=== PATIENT | male | born 2000 | race Caucasian/White ===

== ENCOUNTER 2024-07-18 08:39 | Emergency (ER) | payer MEDICAID, OTHER ==
[~2024-07-18] VITALS: Ht 182.9 cm; Wt 66.0 kg
[2024-07-18 09:04] VITALS: BP 127/78; TEMP 98.9
[2024-07-18 09:07] VITALS: PULSE 104; RESP 16; O2SAT 98
[2024-07-18 10:08] LABS: Basophils # (auto) 0 10 ^3/uL (0-0.2); Basophils % (auto) 0.2 % (0.0-2.0); Eosinophils # (auto) 0 10 ^3/uL (0-0.8); Eosinophils % (auto) 0.1 % (0.0-7.0); Hematocrit 48.2 % (41.0-53.0); Hemoglobin 16.2 g/dL (13.5-17.5); Lymphocytes # (auto) 0.9 10 ^3/uL (0.4-5.4); Lymphocytes % (auto) 4.4 % (10.0-50.0); Mean Corpuscular Hemoglobin 33.1 pg (28.0-32.0); Mean Corpuscular Hgb Conc. 33.6 g/dL (32.0-36.0); Mean Corpuscular Volume 98.3 fL (80.0-100.0); Monocytes % (auto) 4.9 % (0.0-12.0); Neutrophils # (auto) 17.9 10 ^3/uL (1.6-8.6); Neutrophils % (auto) 90.4 % (37.0-80.0); Platelet Count (auto) 208 10^3/uL (140-450); Red Cell Distribution Width 13.8 % (11.8-14.3); White Blood Cell 19.8 10^3/uL (4.4-10.8)
[2024-07-18 10:16] LABS: Alanine Aminotransferase 13 U/L (7-40); Alkaline Phosphatase 57 U/L (46-116); Anion Gap 9 (5-15); Aspartate Aminotransferase 17 U/L (13-40); BUN/Creatinine Ratio 12.9 (10.0-20.0); Blood Alcohol 3.8 mg/dL (<10); Blood Urea Nitrogen 12 mg/dL (9-23); Carbon Dioxide 25 mmol/L (20-31); Chloride 102 mmol/L (98-107); Glucose 93 mg/dL (74-106); Potassium 3.6 mmol/L (3.5-5.1); Sodium 136 mmol/L (136-145)
[2024-07-18 10:21] LABS: Albumin 5.5 g/dL (3.2-4.8); Calcium 10.4 mg/dL (8.7-10.4); Total Protein 8.4 g/dL (5.7-8.2)
[2024-07-18 10:27] LABS: Bilirubin, Total 1.6 mg/dL (0.2-1.0)
[2024-07-18 11:21] LABS: Urine Bacteria None Seen /hpf (None Seen)
--- NOTE | 2024-07-18 11:38 | ED.PDOC ---
Psychiatric HPI Comments 23-year-old male with PMHx Bipolar Disorder, Borderline Personality Disorder, PTSD, Anxiety, Depression presents with a chief complaint of hopelessness x onset 2 weeks. Patient states that he is not currently suicidal or homicidal at this time, but does endorse feeling "mentally unstable" and has not had his medications in 2 weeks. Patient reports that he normally takes Abilify and Ativan and has not taken them in 2 weeks. Patient also reports body aches and headache. No other symptoms or modifying factors present at this time. Chief Complaint: Suicidal Time Seen by MD: 11:15 Primary Care Provider: NONE Reviewed Notes: Medications, Allergies Information Source: Patient Mode of Arrival: Ambulatory Severity: Able to Care for Self, Able to Control Self Severity of Pain: Moderate Severity of Mental Status: Moderate Severity of Symptoms: Moderate Timing: Days Duration: Since onset Prehospital treatment: None Presents with: Other (HOPELESSNESS) Quality: Hopelessness Past Medical History PAST MEDICAL HISTORY: Anxiety, Depression Past Medical History (Other): Bipolar Disorder, Borderline Personality Disorder, PTSD Surgical History (Other): Left Wrist Repair Family History Family History: Reviewed,noncontributory to illness Social History Smoker: Cigarettes Alcohol: Sober Drugs: Denies Drug Use Lives In: Home Constitutional: denies: chills, diaphoresis, fatigue, fever, malaise, sweats, weakness, others EENTM: denies: blurred vision, double vision, ear bleeding, ear discharge, ear drainage, ear pain, ear ringing, eye pain, eye redness, hearing loss, mouth pain, mouth swelling, nasal discharge, nose bleeding, nose congestion, nose pain, photophobia, tearing, throat pain, throat swelling, voice changes, others Respiratory: denies: cough, hemoptysis, orthopnea, SOB at rest, shortness of breath, SOB with excertion, stridor, wheezing, others Cardiovascular: denies: chest pain, dizzy spells, diaphoresis, Dyspnea on exertion, edema, irregular heart beat, left arm pain, lightheadedness, palpitations, PND, syncope, others Gastrointestinal: denies: abdomen distended, abdominal pain, blood streaked bowels, constipated, diarrhea, dysphagia, difficulty swallowing, hematemesis, melena, nausea, poor appetite, poor fluid intake, rectal bleeding, rectal pain, vomiting, others Genitourinary: denies: burning, dysuria, flank pain, frequency, hematuria, incontinence, penile discharge, penile sore, pain, testicle pain, testicle swelling, urgency, others Neurological: denies: dizziness, fainting, headache, left sided numbness, left sided weakness, numbness, paresthesia, pre-existing deficit, right sided numbness, right sided weakness, seizure, speech problems, tingling, tremors, we akness, others Musculoskeletal: denies: back pain, gout, joint pain, joint swelling, muscle pain, muscle stiffness, neck pain, others Integumetry: denies: bruises, change in color, change in hair/nails, dryness, laceration, lesions, lumps, rash, wounds, others Allergic/Immunocompromised: denies: Difficulty Healing, Frequent Infections, Hives, Itching, others Hematologic/Lymphatic: denies: anemia, blood clots, easy bleeding, easy bruising, swollen glands, others Endocrine: denies: excessive hunger, excessive sweating, excessive thirst, excessive urination, flushing, intolerance to cold, intolerance to heat, unexplained weight gain, unexplained weight loss, others Psychiatric: reports: depression, hopeless; denies: anxiety, bipolar disorder, panic disorder, schizophrenia, sleepless, suicidal, others All Other Systems: Reviewed and Negative Physical Exam General Appearance: No Apparent Distress HEENT: Other (Unremarkable) Neck: Full Range of Motion, Normal Inspection Respiratory: Lungs Clear, No Accessory Muscle Use, No Respiratory Distress, Normal Breath Sounds Cardiovascular: No Edema, No JVD, Regular Rate/Rhythm Breast Exam: Deferred Gastrointestinal: Non Tender, Soft Genitalia: Deferred Pelvic: Deferred Rectal: Deferred Extremities: Normal inspection, Normal range of motion, Non-tender, No pedal edema Neurologic: Alert (Oriented x4), Normal Affect, Normal Mood (Depressed mood), Other (Ambulatory without difficulty. No gross focal deficit.) Cerebellar Function: NOT DONE Reflexes: NOT DONE Skin: Dry, Normal Color, Warm Lymphatic: NOT DONE Was a procedure done? Was a procedure done?: No Psych Differential Dx Psych. Differential Dx: Anxiety, Depression, Hopeless OD Differential Dx: Alcohol Abuse, Depression, Drug Overdose Suicidal Differential Dx: Panic Disorder, Personality Disorder, Substance Abuse Intoxication Differential Dx: Alcohol Withdraw Syndrome, Dehydration, Depression, Electrolyte Imbalance, Intoxication, Medical Noncompliance, Substance Abuse Disorder X-Ray, Labs, Meds, VS Vital Signs Date Time Temp Pulse Resp B/P (MAP) Pulse Ox O2 Delivery O2 Flow Rate FiO2 07/18/24 09:07 104 16 98 Room Air* 0 21 07/18/24 09:04 98.9 104 16 127/78 (94) 98 98.9 07/18/24 08:40 98.1 113 16 125/75 (92) 98 Lab Test 07/18/24 12:57 07/18/24 10:39 07/18/24 10:10 07/18/24 09:29 Range/Units Salicylates Level < 3.0 -30 mg/dL Acetaminophen Level < 2.0 L 10.0-20.0 UG/ML SARS-CoV-2 Antigen (Rapid) Negative NEGATIVE Urine Color Yellow Yellow Urine Clarity Turbid H Clear Urine pH 6.5 5.0-9.0 Urine Specific [place] 1.034 1.001-1.035 Urine Protein 1+ H Negative Urine Ketones 2+ H Negative Urine Blood Negative Negative /uL Urine Nitrite Negative Negative Urine Bilirubin Negative Negative Urine Urobilinogen Normal Negative mg/dL Urine Leukocyte Esterase Negative Negative /uL Urine RBC 1 0 - 3 /hpf Urine WBC 1 0 - 3 /hpf Urine Squamous Epithelial Cells None seen <5 /hpf Urine Bacteria None seen None Seen /hpf Urine Mucus Few None Seen Urine Sperm Present None Seen /hpf Urine Glucose Normal Normal mg/dL Urine Opiates Screen Neg NEGATIVE Urine Fentanyl Screen Neg NEGATIVE Urine Barbiturates Screen Neg NEGATIVE Urine Phencyclidine Screen Neg NEGATIVE Urine Amphetamines Screen Neg NEGATIVE Urine Benzodiazepines Screen Neg NEGATIVE Urine Cocaine Screen Neg NEGATIVE Urine Cannabinoids Screen Pos NEGATIVE White Blood Count 19.8 H 4.4-10.8 10^3/uL Red Blood Count 4.90 4.5-5.90 10^6/uL Hemoglobin 16.2 13.5-17.5 g/dL Hematocrit 48.2 41.0-53.0 % Mean Corpuscular Volume 98.3 80.0-100.0 fL Mean Corpuscular Hemoglobin 33.1 H 28.0-32.0 pg Mean Corpuscular Hemoglobin Concent 33.6 32.0-36.0 g/dL Red Cell Distribution Width 13.8 11.8-14.3 % Platelet Count 208 140-450 10^3/uL Mean Platelet Volume 10.9 H 6.9-10.8 fL Neutrophils (%) (Auto) 90.4 H 37.0-80.0 % Lymphocytes (%) (Auto) 4.4 L 10.0-50.0 % Monocytes (%) (Auto) 4.9 0.0-12.0 % Eosinophils (%) (Auto) 0.1 0.0-7.0 % Basophils (%) (Auto) 0.2 0.0-2.0 % Neutrophils # (Auto) 17.9 H 1.6-8.6 10 ^3/uL Lymphocytes # (Auto) 0.9 0.4-5.4 10 ^3/uL Monocytes # (Auto) 1.0 0-1.3 10 ^3/uL Eosinophils # (Auto) 0 0-0.8 10 ^3/uL Basophils # (Auto) 0 0-0.2 10 ^3/uL Nucleated Red Blood Cells 0.0 % Sodium Level 136 136-145 mmol/L Potassium Level 3.6 3.5-5.1 mmol/L Chloride Level 102 98-107 mmol/L Carbon Dioxide Level 25 20-31 mmol/L Anion Gap 9 5-15 Blood Urea Nitrogen 12 9-23 mg/dL Creatinine 0.93 0.700-1.30 mg/dL Glomerular Filtration Rate Calc 117 >90 mL/min BUN/Creatinine Ratio 12.9 10.0-20.0 Serum Glucose 93 74-106 mg/dL Calcium Level 10.4 8.7-10.4 mg/dL Total Bilirubin 1.6 H 0.2-1.0 mg/dL Aspartate Amino Transferase (AST) 17 13-40 U/L Alanine Aminotransferase (ALT) 13 7-40 U/L Alkaline Phosphatase 57 46-116 U/L Total Protein 8.4 H 5.7-8.2 g/dL Albumin 5.5 H 3.2-4.8 g/dL Thyroid Stimulating Hormone (TSH) 1.84 0.55-4.78 uIU/mL Beta HCG, Quantitative 0.5 0-2 mIU/mL Plasma/Serum Blood Alcohol 3.8 <10 mg/dL Current Medications Medications (Trade) Dose Ordered Sig/Dax Route Start Time Stop Time Status Last Admin Ibuprofen (Motrin Tablet) 600 mg ONCE ONCE PO 07/18/24 12:00 07/18/24 12:01 DC 07/18/24 12:21 X-Ray, Labs, Meds, VS Comment 23-year-old male with a history of multiple psychiatric problems presenting stating he feels mentally unstable and hopeless. Patient states he has been off his medications for 2 weeks. Vitals remarkable for heart rate 113 Exam unremarkable Rhythm strip independently interpreted by me: Sinus rhythm, rate 98, no ectopy. CBC remarkable for WBC 19.8, CMP, Tylenol, salicylate, alcohol unremarkable for any abnormality of acute significance. Urine drug screen positive for cannabinoids Patient was re-evaluated by me at 2:52 p.m.. He denied suicidal or homicidal ideation, auditory or visual hallucinations. He stated he just felt hopeless. I advised him that plan was for tele psych consultation. He stated he was in contact with his family, who was going to assist him in getting home to [place]. He stated he did not want to stay for psychiatric evaluation. He stated he was comfortable going on a train back to [place] where he could be re-evaluated by his primary psychiatric care provider. Patient was advised of the risks including persistent or worsening symptoms, permanent disability or . He expressed understanding and stated he would like to sign out against medical advice. He was alert, oriented x4 and capable of making informed decisions at the time he signed out against medical advice. Time of 1ST Reevaluation: 11:45 Reevaluation 1ST: Unchanged Time of 2ND Reevaluation: 14:53 Reevaluation 2ND: Unchanged Patient Education/Counseling: Diagnosis, Treatment, Prognosis Family Education/Counseling: No Family Present Departure 1 Departure Time of Disposition: 14:53 Impression: Primary Impression: Hopelessness Additional Impression: Medical non-compliance Disposition: 07 LEFT AGAINST MEDICAL ADVICE Condition: Fair Additional Instructions: You are leaving against medical advice. Follow-up with your mental health professional as soon as possible. Return to ER for thoughts of hurting herself, hallucinations, thoughts of hurting others, or any other concern. Discharged With: Self Critical Care Note Critical Care Time?: No Stability Stability form required: No Heart Score Heart Score: Heart Score Response (Comments) Value History N/A 0 EKG N/A 0 Age N/A 0 Risk Factors N/A 0 Troponin N/A 0 Total 0 I personally scribed for АЛЕКСАНДР NAVARRO MD ([facility]) on 07/18/24 at 11:38. Electronically submitted by Manas Perry ([email or web address]). [email or web address] NAVARRO MD Jul 18, 2024 11:38
[2024-07-18 11:52] LABS: Cannabinoid Screen, Urine Pos (NEGATIVE); Urine Blood Negative /uL (Negative); Urine Clarity Turbid (Clear); Urine Color Yellow (Yellow); Urine Mucus FEW (None Seen); Urine Protein, UAD 1+ (Negative); Urine Specific Gravity 1.034 (1.001-1.035); Urine Sperm PRESENT /hpf (None Seen); Urine Squamous Epithelial Cell None Seen /hpf (<5); Urine Urobilinogen Normal (Negative); Urine WBC 1 /hpf (0 - 3); Urine pH 6.5 (5.0-9.0)
[2024-07-18 11:56] LABS: Amphetamine Screen, Urine Neg (NEGATIVE); Barbiturate Scree,Urine Neg (NEGATIVE); Benzodiazephine Screen, Urine Neg (NEGATIVE); Cocaine Screen, Urine Neg (NEGATIVE); Opiate Scree,Urine Neg (NEGATIVE); Phencyclidine Screen, Urine Neg (NEGATIVE)
[2024-07-18] MEDS: IBUPROFEN 600 MG TAB PO ONE (12:21)
[2024-07-18 12:26] LABS: COVID19 ANTIGEN SOFIA FIA NEGATIVE (NEGATIVE)
[2024-07-18 13:53] LABS: Acetaminophen < 2.0 UG/ML (10.0-20.0); Salicylate < 3.0 mg/dL (-30)
== END 2024-07-18 17:58 | disposition left against medical advice (07) ==
LOC: ER 08:39
DX: R45.2 Unhappiness (principal); F41.9 Anxiety disorder, unspecified; F31.9 Bipolar disorder, unspecified; F17.210 Nicotine dependence, cigarettes, uncomplicated; Z91.199 Patient's noncompliance with other medical treatment and regimen due to unspecified reason; Z98.890 Other specified postprocedural states; Z20.822 Contact with and (suspected) exposure to COVID-19
CPT/HCPCS: 36415; 80053; 80307; 80320; 80329; 81001; 84443; 84702; 85025; 87426